=== PATIENT | female | born 1990 | race Two or more races ===

== ENCOUNTER 2020-08-14 15:21 | Emergency (ER) | payer OTHER, SELFPAY ==
[2020-08-14 15:29] VITALS: BP 140/92; PULSE 92; RESP 16; TEMP 37.1; O2SAT 98; BMI 32.9
--- NOTE | 2020-08-14 15:46 | XR_ITS ---
PROCEDURE: XR CHEST PORTABLE CLINICAL HISTORY: cough COMPARISON: No exams were available for comparison FINDINGS: The cardiomediastinal silhouette and pulmonary vascularity are within normal limits. The lungs are clear without infiltrates, suspicious nodules, or pleural effusions. No acute bony abnormalities. IMPRESSION: No acute findings. Dictated by: Dr. Asim Bae MD 08/15/2020 08:36 Dr. Asim Bae MD in [place] 08/15/2020 08:36
--- NOTE | 2020-08-14 16:00 | HMH.EDURI ---
ED Disposition Clinical Impression: Pharyngitis Qualifiers: Pharyngitis/tonsillitis etiology: other specified organisms Qualified Code(s): J02.8 - Acute pharyngitis due to other specified organisms Upper respiratory infection Qualifiers: URI type: unspecified viral URI Qualified Code(s): J06.9 - Acute upper respiratory infection, unspecified Disposition: Home, Self-Care Condition on Discharge: Good Instructions: DI for Viral Pharyngitis Prescriptions: diphenhydrAMINE HCL [Benadryl 25mg Capsule] 25 mg PO BID #12 cap Transmission Status: Pending to [id number] Ibuprofen [Ibuprofen 800mg Tablet] 800 mg PO TIDP PRN #20 tab PRN Reason: Moderate Pain Transmission Status: Pending to [id number] Referrals: Glen Bullock MD [Staff Physician] - - Critical Care Critical Care Time: No Attestation: On , the high probability of a clinically significant, sudden or life threatening deterioration of the following system(s) required my full and direct attention, intervention and personal management. The time I documented below is in addition to time spent performing reported procedures but includes the following listed in this critical care notation. Medical Decision Making - Medical Records Medical records reviewed: Yes: I reviewed the patient's medical records. - Peewee Inquiry Pt receiving controlled substance: No Vital Signs: 08/14/20 15:29 Temperature 98.8 F Temperature Source Oral Pulse Rate [Radial] 92 H Respiratory Rate 16 Blood Pressure [Right Arm] 140/92 H Blood Pressure Mean [Right Arm] 108 Blood Pressure Position [Right Arm] Sitting 02 Sat by Pulse Oximetry 98 Oxygen Delivery Method Room Air - Lab Data Lab Results 08/14/20 15:13: Group A Strep Rapid Negative Orders (Tests/Meds): ED MEDICATIONS Discontinued Medications Generic Name Dose Route Start Last Admin Trade Name Freq PRN Reason Stop Dose Admin Diphenhydramine HCl 25 mg 08/14/20 15:46 08/14/20 15:51 Diphenhydramine 25mg Capsule PO 08/14/20 15:47 25 mg ONCE ONE Administration Ibuprofen 800 mg 08/14/20 15:46 08/14/20 15:51 Ibuprofen 400 Mg Tablet PO 08/14/20 15:47 800 mg ONCE ONE Administration Lidocaine HCl 15 ml 08/14/20 15:46 08/14/20 15:50 Lidocaine 2% Viscous [place] 15ml Udc PO 08/14/20 15:47 15 ml ONCE ONE Administration ORDERS Category Date Time Status XR chest portable Stat Exams 08/14/20 15:46 Taken Strep Screen Confirmation Stat Micro 08/14/20 15:13 Received - Radiology Data #1 Image(s): Chest Image Reviewed: Yes I reviewed the patient's radiology results, Yes I have reviewed radiologist's interpretation Preliminary Findings: Normal/NAD - Reevaluation(s) Time: 16:13 Reevaluation #1: On reevaluation, patient is feeling better. Strep was negative. Findings are still consistent with pharyngitis. Patient be given symptomatic treatment. He is to follow-up with PCP in 48 hours. Given strict return call. Verbalized understanding. Medical Decision Narrative: This is a 30-year-old female presenting to the emergency department with throat discomfort. Appears to be chronic in nature. I do believe this is likely allergy related at baseline. There is no evidence of trauma on physical examination. However now the patient does have some erythema and irritation of the posterior oropharynx. Consistent with pharyngitis. Rest of the ENT exam is benign. Neck is normal. Patient be treated symptomatically. URI/Sore Throat HPI - General Chief Complaint: Upper Respiratory Infection Stated Complaint: Poss FB in throat, difficulty swallowing Time Seen by Provider: 08/14/20 15:35 Mode of Arrival: Ambulatory Limitations: Language Barrier Description of Symptoms (Recalled from ER Triage Doc. by RN): TO ED PER PVT CAR WITH C/O FB SENSATION THROAT X 3 MONTHS. PROGRESSIVELY GETTING WORSE. - History of Present Illness HPI Narrative: This is a 30-ye
[2020-08-14 16:01] LABS: Strep Scrn Group A (Rapid) Negative (Negative)
[2020-08-14 16:17] VITALS: BP 130/89; PULSE 85; RESP 17; TEMP 37.1; O2SAT 100
== END 2020-08-14 16:19 | disposition home or self-care (01) ==
PROVIDERS: Emergency Provider Emergency Medicine
DX: J02.8 Acute pharyngitis due to other specified organisms (principal); J06.9 Acute upper respiratory infection, unspecified
CPT/HCPCS: 71045; 87430; 99282

== ENCOUNTER 2021-04-26 18:46 | Emergency (ER) | payer OTHER, SELFPAY ==
[2021-04-26 18:54] VITALS: BP 141/71; PULSE 78; RESP 18; TEMP 36.7; O2SAT 98; BMI 31.1
--- NOTE | 2021-04-26 18:54 | XR_ITS ---
PROCEDURE INFORMATION: Exam: XR Right Foot Exam date and time: 04/26/2021 6:54 PM Age: 30 years old Clinical indication: Pain; Foot; Right TECHNIQUE: Imaging protocol: XR Right foot. Views: 3 or more views. COMPARISON: No relevant prior studies available. FINDINGS: Bones/joints: Normal. Soft tissues: Normal. IMPRESSION: No acute findings.
[2021-04-26 19:10] VITALS: BP 141/71; PULSE 78; RESP 18; TEMP 36.7; O2SAT 98; BMI 31.2
--- NOTE | 2021-04-26 20:15 | HMH.EDUTC ---
[facility] [place] Clinical Impression: Foot sprain Qualifiers: Encounter type: initial encounter Laterality: right Qualified Code(s): S93.601A - Unspecified sprain of right foot, initial encounter Disposition: Home, Self-Care Condition on Discharge: Good Instructions: How To Perform RICE (Rest, Ice, Compress, Elevate), Ibuprofen, How to Use Crutches Additional Instructions: *weight bearing as tolerated *RICE, Rest the extremity, Ice 15-20 minutes 3-4 times daily, Compress- wear the keith wrap as discussed as much as possible to help reduce swelling and pain, Elevate the extremity when at rest *Keith wrap is for support and help control swelling, use it except in the shower. Be sure that is not to tight but not to loose either *Elevate when resting *Ibuprofen as prescribed as needed for pain an inflammation. If need something more can take Tylenol in between doses of Ibuprofen to help Immediately follow up with your family doctor for new or worsening of symptoms, or no noticeable improvement over the next 3-5 days Prescriptions: Ibuprofen [Ibuprofen 800mg Tablet] 800 mg PO TIDP PRN #20 tab PRN Reason: Moderate Pain Transmission Status: Pending to [id number] Referrals: Provider,Referral, MD [Primary Care Provider] - As needed Time of Disposition: 20:19 Medical Decision Making - Peewee Inquiry Pt receiving controlled substance: No Peewee was queried for this patient: No Vital Signs: 04/26/21 18:54 04/26/21 19:10 Temperature 98.1 F 98.1 F Temperature Source Oral Oral Pulse Rate [Right] 78 78 Respiratory Rate 18 18 Blood Pressure [Right Arm] 141/71 H 141/71 H Blood Pressure Mean [Right Arm] 94 94 Blood Pressure Source [Right Arm] Automatic Cuff Blood Pressure Position [Right Arm] Sitting 02 Sat by Pulse Oximetry 98 98 Oxygen Delivery Method Room Air Room Air - Radiology Data #1 Image(s): Foot/Toes Image Reviewed: Yes I have reviewed radiologist's interpretation IMPRESSION: No acute findings. Medical Decision Narrative: Patient denies [facility] [place] HPI - General Stated complaint: Ao 04/26 rt foot injury Time Seen by Provider: 04/26/21 20:15 Mode of Arrival: Ambulatory Source of Information: Patient Limitations: No Limitations Description of Symptoms (Recalled from Triage Doc. by RN): Patient c/o right ankle pain after she reports she rolled her ankle stepping off a tractor one hour prior to arrival. Patient has some swelling around ankle. Patient has full ROM in ankle. HEENT Symptoms (Recalled from RN notes): No Resp Symptoms (Recalled from RN notes): No Skin Symptoms (Recalled from RN notes): No MS Symptoms (Recalled from RN notes): Yes Functional Status (Recalled from RN notes): WNL - History of Present Illness Provider Complaint: Pateint primarily Thai speaking but can speak limited Martiniquais and understand Martiniquais Patient states she was stepping off tractor and twisted her ankle having pain in the side of her foot ever since Happened about an hour before arrival - Related Data Previous Rx's Medication Instructions Recorded predniSONE [Prednisone 20mg 20 mg PO BID #10 tab 05/26/19 Tab] Azithromycin [Z-John 250mg Tab*] 250 mg PO UD DOSE PK #6 tab 10/14/19 Fluticasone Propionate [Flonase 2 spr NS DAILY #1 bottle 10/14/19 50mcg nasal spray 16gm] methylPREDNISolone [Medrol 4mg 4 mg PO DIRECTED #21 tab 10/14/19 tab] Ibuprofen [Ibuprofen 800mg 800 mg PO TIDP PRN #20 tab 08/14/20 Tablet] diphenhydrAMINE HCL [Benadryl 25mg 25 mg PO BID #12 cap 08/14/20 Capsule] Ibuprofen [Ibuprofen 800mg 800 mg PO TIDP PRN #20 tab 04/26/21 Tablet] Allergies Allergy/AdvReac Type Severity Reaction Status Date / Time No Known Allergies Allergy Verified 05/26/19 21:48 - Worker's Comp Is this a Worker's Comp case?: No [facility] History - Hepatitis A Screen Drug use history?: No High risk sexual behaviors?: No History of sexually transmitted infectio
[2021-04-26 20:20] VITALS: BP 141/71; PULSE 78; RESP 18; TEMP 36.7; O2SAT 98
== END 2021-04-26 20:26 | disposition home or self-care (01) ==
LOC: ER 18:53 → UTC 18:54
PROVIDERS: Emergency Provider Nurse Practitioner
DX: S93.601A Unspecified sprain of right foot, initial encounter (principal); X50.1XXA Overexertion from prolonged static or awkward postures, initial encounter; Y92.73 Farm field as the place of occurrence of the external cause
CPT/HCPCS: 73630; 99202; G0463

== ENCOUNTER 2023-12-16 12:47 | Emergency (ER) | payer SELFPAY ==
[2023-12-16 12:49] VITALS: BP 121/79; PULSE 85; RESP 17; TEMP 36.9; O2SAT 99; BMI 34.9
--- NOTE | 2023-12-16 13:04 | PC.NURSE ---
DR BURRELL AT BEDSIDE
--- NOTE | 2023-12-16 13:16 | ED_ITS ---
Discharge Plan Disposition Patient Disposition: Home, Self-Care Condition: Good Prescriptions Prescriptions: New prednisone 20 mg tablet 20 mg PO DAILY Qty: 42 0RF Rx Instructions: Take 60 mg or 3 tablets on day 1-7 followed by 40 mg or 2 tablets on day 8-14 followed by 20 mg or 1 tablet on day 15-21 sulfamethoxazole-trimethoprim [Bactrim DS] 800-160 mg tablet 1 tab PO BID 7 Days Qty: 14 0RF No Action ibuprofen 800 MG tablet 800 mg PO TIDP PRN (Reason: Moderate Pain) Qty: 20 0RF diphenhydramine HCl 25 MG capsule 25 mg PO BID Qty: 12 0RF prednisone 20 MG tablet 20 mg PO BID Qty: 10 0RF azithromycin 250 MG tablet 250 mg PO UD DOSE PK Qty: 6 0RF Rx Instructions: Take two (2) tablets today, then one (1) tablet days #2 thru #5 methylprednisolone 4 MG tablet 4 mg PO DIRECTED Qty: 21 0RF Rx Instructions: Take as directed on package instructions fluticasone propionate 120 SPR/BOT bottle 2 spr NS DAILY Qty: 1 0RF Rx Instructions: each nostril daily ibuprofen 800 MG tablet 800 mg PO TIDP PRN (Reason: Moderate Pain) Qty: 20 0RF Referrals Follow up/Referrals: Provider,Referral, MD [Primary Care Provider] - See instructions Activity Restrictions/Add. Instructions Additional Instructions/Restrictions: Take prednisone as prescribed, take Bactrim as prescribed, you can apply erythromycin ointment during the first week of treatment. Follow-up with your primary care provider for continued management and return for any new or worsening symptoms including but not limited to worsening redness or swelling, difficulty with your vision or any other concerns arise. Clinical Impressions Clinical Impression: Contact dermatitis due to poison crystal Instructions Patient Instructions: DI for Poison Crystal Allergy Discharge ED Provider: Rosina Rivas General Adult HPI General Chief complaint: Eye Problems Stated complaint: left eye irritation redness Time Seen by Provider: 12/16/23 12:51 History of Present Illness HPI narrative: Patient is a 33-year-old female with no significant past medical history presenting with left eye redness and swelling. Patient states that she had contact with poison crystal 2 days ago and has been trying to treat symptomatically at home with Benadryl but has had swelling of the outer eye area and presented for further evaluation. She denies any visual changes or blurry vision or any other area of rash except for around her left eye. Allergies. Denies any fevers. Related Data Previous Rx's Medication Instructions Recorded prednisone 20 mg tablet 20 mg PO BID #10 tabs 05/26/19 azithromycin 250 mg tablet 250 mg PO UD DOSE PK #6 tabs 10/14/19 fluticasone propionate 50 2 spr NS DAILY ##1 10/14/19 mcg/actuation nasal spray,suspension methylprednisolone 4 mg tablet 4 mg PO DIRECTED #21 tabs 10/14/19 diphenhydramine HCl 25 mg capsule 25 mg PO BID #12 caps 08/14/20 ibuprofen 800 mg tablet 800 mg PO TIDP PRN Moderate Pain 08/14/20 #20 tabs ibuprofen 800 mg tablet 800 mg PO TIDP PRN Moderate Pain 04/26/21 #20 tabs prednisone 20 mg tablet 20 mg PO DAILY #42 tabs 12/16/23 sulfamethoxazole 800 1 tab PO BID 7 days #14 tabs 12/16/23 mg-trimethoprim 160 mg tablet (Bactrim DS) Allergies Allergy/AdvReac Type Severity Reaction Status Date / Time No Known Allergies Allergy Verified 05/26/19 21:48 [facility] Disclaimer: The information contained in this section may have been updated after the patient was seen, as this information can be updated by other users. Social History Smoking Status: Never smoker second hand exposure: No alcohol intake: never current occupational status: other Travel in the last 8 weeks: None ROS Obtained: Yes Systems reviewed as appropriate & no additional complaints except as documented Physical Exam General General appearance: alert and in no apparent distress Head Head exam: atraumatic, normocephalic and other (Area surrounding the left eye is slightly erythematous and swollen though ocular movements intact without pain with range of motion, there are some small vesicles under the lower eyelid area, no other involvement in the area is not warm to the touch) Eye Eye exam: Present PERRL and EOMI Chest Chest inspection: Present normal inspection and symmetric chest wall rise Respiratory Respiratory exam: Present normal lung sounds bilaterally; Absent respiratory distress Cardiovascular Cardiovascular exam: Present regular rate and normal rhythm Abdominal Exam Abdominal exam: Present soft; Absent tenderness Neurological Exam Neurological exam: Present alert and oriented X3 Medical Decision Making Medical Records Medical records reviewed: Yes I reviewed the patient's medical records. Peewee Inquiry Pt receiving controlled substance: No Vital Signs: 12/16/23 12:49 Temperature 98.5 F Temperature Source Oral Pulse Rate [Right] 85 Respiratory Rate 17 Blood Pressure [Right Arm] 121/79 Blood Pressure Mean [Right Arm] 93 Blood Pressure Source [Right Arm] Automatic Cuff 02 Sat by Pulse Oximetry 99 Oxygen Delivery Method Room Air Orders (Tests/Meds): ED MEDICATIONS Discontinued Medications Generic Name Dose Route Start Last Admin Trade Name Neilq PRN Reason Stop Dose Admin Erythromycin 0.5 gm 12/16/23 13:16 Erythromycin Base 1 Gm Oint...G. OP 12/16/23 13:17 ONCE ONE Medical Decision Narrative: Patient is a 33-year-old female with no significant past medical history presenting with poison crystal rash over the left periorbital area. It has been worsening the past 2 days and does have known positive contact with poison crystal plant. Exam does have a rash over this area and erythema and swelling but she is able to open the eye with no difficulty, no drainage, visual acuity intact, no reported blurriness or change in vision and no pain with extraocular mo vements. Will prescribe patient a course of oral prednisone and will also prescribe antibiotic Bactrim out of an abundance of precaution considering area of infection. Given erythromycin ointment while in the emergency department. To follow-up outpatient and given return precautions which patient is agreeable. Discharged in stable condition. Critical Care Critical Care Time Critical Care Time: No
[2023-12-16 13:44] VITALS: BP 117/78; PULSE 82; RESP 18; TEMP 36.6; O2SAT 98
[2023-12-16] MEDS: ERYTHROMYCIN BASE 1 GM OINT...G. 0.5 GM OP (13:44)
== END 2023-12-16 13:45 | disposition home or self-care (01) ==
PROVIDERS: Emergency Provider Emergency Medicine
DX: L23.7 Allergic contact dermatitis due to plants, except food (principal)
CPT/HCPCS: 99283

== ENCOUNTER 2024-04-25 13:55 | Emergency (ER) | payer SELFPAY ==
[2024-04-25 14:00] VITALS: BP 144/83; PULSE 74; RESP 18; TEMP 37; O2SAT 98; BMI 36.0
--- NOTE | 2024-04-25 14:15 | EXP.UTC ---
Discharge Plan Disposition Patient Disposition: Home, Self-Care Condition: Good Prescriptions Prescriptions: New triamcinolone acetonide 0.1 % cream 1 applic topical BID PRN (Reason: itching) Qty: 30 0RF cephalexin 500 mg capsule 500 mg PO QID Qty: 40 0RF methylprednisolone 4 mg Tablets,Dose Pack 4 mg PO DIRECTED 6 Days Qty: 21 0RF Rx Instructions: Take 1 pack as directed for 6 days Referrals Follow up/Referrals: Provider,Referral, MD [Primary Care Provider] - See instructions Activity Restrictions/Add. Instructions Additional Instructions/Restrictions: Try to identify and avoid contact with the offending substance. Don't put the topical steroids (triamcinolone) on your face or your groin. Follow up with your regular doctor. GO TO THE ER FOR ANY WORSENING SYMPTOMS OR CONCERNS Clinical Impressions Clinical Impression: Contact dermatitis Atopic dermatitis Qualifiers: Atopic dermatitis type: unspecified Qualified Code(s): L20.9 - Atopic dermatitis, unspecified Instructions Patient Instructions: DI for Atopic Dermatitis-Adult, Triamcinolone Topical, Cephalexin, Methylprednisolone Discharge ED Provider: Tobin Bliss [facility] General Stated complaint: rash on fingers of both hands Mode of Arrival: Ambulatory Source of Information: Patient Limitations: No Limitations Time Seen by Provider: 04/25/24 14:15 Description of Symptoms (Recalled from Triage Doc. by RN): Pt's symptoms are she planted tobacco and 4 days ago she has been having blisters/bumps on her fingers where they itch. HEENT Symptoms (Recalled from RN notes): No Resp Symptoms (Recalled from RN notes): No Skin Symptoms (Recalled from RN notes): Yes MS Symptoms (Recalled from RN notes): No Functional Status (Recalled from RN notes): n/a Related Data Previous Rx's Medication Instructions Recorded cephalexin 500 mg capsule 500 mg PO QID #40 caps 04/25/24 methylprednisolone 4 mg tablets in 4 mg PO DIRECTED 6 days #21 tabs 04/25/24 a dose pack triamcinolone acetonide 0.1 % 1 applic topical BID PRN itching 04/25/24 topical cream #30 grams Allergies Allergy/AdvReac Type Severity Reaction Status Date / Time No Known Allergies Allergy Verified 04/25/24 14:12 Worker's Comp Is this a Worker's Comp case?: No [facility] Disclaimer: The information contained in this section may have been updated after the patient was seen, as this information can be updated by other users. Social History Smoking Status: Never smoker second hand exposure: No alcohol intake: never current occupational status: other Travel in the last 8 weeks: None ROS Obtained: Yes All systems reviewed & no additional complaints except as documented Constitutional Constitutional: Denies chills and Denies fever(s) Eyes Eyes: Denies eye discharge ENT Ears, Nose, Mouth, and Throat: Denies dizziness, Denies otalgia and Denies sore throat Cardiovascular Cardiovascular: Denies chest pain Respiratory Respiratory: Denies shortness of breath, Denies chest congestion, Denies cough, Denies stridor and Denies wheezing Gastrointestinal Gastrointestingal: Denies nausea or vomiting Musculoskeletal Musculoskeletal: Reports system reviewed and no additional complaints, except as documented and Denies arthralgias Integumentary/Breasts Skin/Breast: Reports as per HPI and Reports rash Neurologic Neurologic: Denies dizziness and Denies paresthesias Allergic/Immunologic Allergic/Immunologic: Denies wheezing Physical Exam General General appearance: alert and in no apparent distress Head Head exam: atraumatic, normocephalic and normal inspection Eye Eye exam: Present normal appearance, PERRL and EOMI ENT ENT exam: Present normal exam, normal oropharynx, mucous membranes moist, TM's normal bilaterally and normal external ear exam Neck Neck exam: Present normal inspection, full ROM and trachea midline; Absent meningismus or lymphadenopathy Chest Chest inspection: Present normal inspection and symmetric chest wall rise; Absent tenderness Respiratory Respiratory exam: Present normal lung sounds bilaterally; Absent respiratory distress Cardiovascular Cardiovascular exam: Present regular rate and normal rhythm; Absent JVD Abdominal Exam Abdominal exam: Present soft and normal bowel sounds; Absent distention, tenderness or guarding Extremities Exam Extremities exam: Present normal inspection, full ROM and normal capillary refill; Absent calf tenderness Back Exam Back exam: Present normal inspection; Absent tenderness Neurological Exam Neurological exam: Present alert and oriented X3 Psychiatric Psychiatric exam: Present normal affect and normal mood Skin Skin exam: Present rash Lymphatic Lymphatic Findings: no adenopathy Medical Decision Making Medical Records Medical records reviewed: No I reviewed the patient's medical records. Peewee Inquiry Pt receiving controlled substance: No Vital Signs: 07/05/24 14:00 Temperature 98.6 F Temperature Source Oral Pulse Rate [Right Radial] 74 Respiratory Rate 18 Blood Pressure [Right Arm] 144/83 H Blood Pressure Mean [Right Arm] 103 Blood Pressure Source [Right Arm] Automatic Cuff Blood Pressure Position [Right Arm] Sitting 02 Sat by Pulse Oximetry 98 Oxygen Delivery Method Room Air
[2024-04-25 14:48] VITALS: BP 144/83; PULSE 74; RESP 18; TEMP 37; O2SAT 98
== END 2024-04-25 14:48 | disposition home or self-care (01) ==
PROVIDERS: Emergency Provider Nurse Practitioner Family
DX: L25.9 Unspecified contact dermatitis, unspecified cause (principal)
CPT/HCPCS: 99212; 99214; G0463